=== PATIENT | female | born 1995 | race African-American/Black ===

== ENCOUNTER 2018-04-03 23:36 | Emergency (ER) | payer SELFPAY ==
[~2018-04-03] VITALS: Ht 157.5 cm; Wt 107.3 kg
[2018-04-04 00:04] LABS: HEMATOCRIT 35.5 % (36.0-46.0); HEMOGLOBIN 11.6 G/DL (11.9-15.5); MCH 26.6 PG (29.0-34.0); MCHC 32.7 G/DL (30.0-36.0); MCV 81.4 FL (83-99); PLATELET COUNT 233 K/uL (156-360); RBC DIS.WIDTH-CV 15.7 % (11.8-14.6); RBC DIS.WIDTH-SD 46.8 % (39-53); RED BLOOD COUNT 4.36 M/uL (3.80-5.20); WHITE BLOOD COUNT 6.1 K/uL (4.1-10.2)
[2018-04-04 00:13] LABS: CHLORIDE 108 mEq/L (99-109); POTASSIUM 3.8 mEq/L (3.7-5.4); SODIUM 142 mEq/L (136-147)
[2018-04-04 00:15] LABS: GLUCOSE 101 mg/dL (70-99); TOTAL PROTEIN 6.9 g/dL (6.4-8.3)
[2018-04-04 00:17] LABS: TOTAL BILIRUBIN 0.2 mg/dL (0.0-1.0)
[2018-04-04 00:18] LABS: ALKALINE PHOSPHATASE 61 IU/L (3-129)
[2018-04-04 00:19] LABS: CREATININE 0.9 mg/dL (0.6-1.3)
[2018-04-04 00:20] LABS: AST (GOT) 17 IU/L (2-34); GFR ESTIMATE (CALCULATED) > 59 mL/min/; UREA NITROGEN (BUN) 13 mg/dL (9-23)
[2018-04-04 00:21] LABS: ALT (GPT) 18 IU/L (3-49)
[2018-04-04 00:27] LABS: QUANTITATIVE HCG < 4.0 MIU/ML
[2018-04-04 01:58] LABS: APPEARANCE CLEAR ((CLEAR)); BILIRUBIN NEGATIVE; BLOOD NEGATIVE; COLOR YELLOW ((YELLOW)); GLUCOSE (STRIP) NEGATIVE; KETONES NEGATIVE; LEUKOCYTES SMALL; NITRITE NEGATIVE; PROTEIN (STRIP) 30; SPECIFIC GRAVITY 1.023 (1.000-1.030); UROBILINOGEN 0.2 MG/DL (0.2-1.0)
[2018-04-04 02:07] LABS: BACTERIA NONE SEEN /HPF; EPITHELIAL CELLS 1+ /HPF; MUCUS TRACE /LPF; UCUL ADDED? YES
[2018-04-04 02:58] LABS: LIPASE 54 U/L (1.0-51.0)
[2018-04-04] MEDS ORDERED: MOTRIN800 MG PO (03:17)
[2018-04-04] MEDS ORDERED: NORCO 7.5/321 TABLET PO (03:17)
[2018-04-04] MEDS ORDERED: FLOMAX0.4 MG PO (03:17)
[2018-04-04] MEDS ORDERED: ZOFRAN ODT8 MG PO (03:17)
[2018-04-04 03:40] LABS: SOURCE URINE
[2018-04-04 03:47] VITALS: BP 121/76
[2018-04-04 11:53] LABS: CHLAMYDIA TRACHOMATIS NEGATIVE; NEISSERIA GONORRHOEAE NEGATIVE
== END 2018-04-04 03:48 | disposition home or self-care (01) ==
LOC: EME 23:36
DX: N20.1 Calculus of ureter (principal); R11.2 Nausea with vomiting, unspecified; B37.3 Candidiasis of vulva and vagina; R31.29 Other microscopic hematuria
CPT/HCPCS: 74176; 76705; 80053; 81003; 83690; 84702; 85027; 86900; 86901; 87077; 87086; 87186; 87491; 87591; 99281; 99283